=== PATIENT | male | born 1940 | race Caucasian/White ===

== ENCOUNTER 2020-08-26 16:04 | Emergency (ER) | payer OTHER ==
[~2020-08-26] VITALS: Ht 170.2 cm; Wt 63.5 kg
--- NOTE | 2020-08-26 16:22 | NUR ---
Dr Aguila at the bedside for MSE.
[2020-08-26] MEDS ORDERED: DRON10CA5 PO (16:24)
[2020-08-26] MEDS ORDERED: IV NORMAL SALINE 1000 ML BAG IV ONE (16:30)
--- NOTE | 2020-08-26 17:14 | NUR ---
Attempted x1 to place a HL on pt, unable to, Pt's daughter states "she does want him to be stick 1000 times, because he will feel pain." Dr Aguila made aware and order recieved for Midline.
--- NOTE | 2020-08-26 17:14 | NUR ---
[employer] [facility] notified for Midline placement, ETA 2000.
[2020-08-26 17:29] LABS: *BILIRUBIN,URIN NEGATIVE (NEGATIVE); *BLOOD, URINE NEGATIVE (NEGATIVE); *COLOR,URINE YELLOW (YELLOW); *KETONES,URINE NEGATIVE (NEGATIVE); LEUKOCYTE ESTERASE ,URINE 1+ (NEGATIVE); NITRITE, URINE POSITIVE (NEGATIVE); PH,URINE 6.5 (5.0-8.0); UGLUCOSE NEGATIVE (NEGATIVE)
[2020-08-26 17:33] LABS: *CLARITY,URINE SLIGHTLY CLOUDY (CLEAR)
[2020-08-26 17:34] LABS: PHOSPHOROUS 2.8 mg/dL (2.5-4.9)
--- NOTE | 2020-08-26 17:37 | NUR ---
Dr Aguila attempted to place a line on Rt external jagular, the site became hematos, pressure dressing applied.
[2020-08-26 17:42] LABS: CARBON DIOXIDE 21 mmol/L (21-32); CHLORIDE 94 mmol/L (98-107); CREATININE 0.3 mg/dL (0.6-1.3); GLUCOSE 130 mg/dL (74-106); POTASSIUM 3.5 mmol/L (3.5-5.1); UREA NITROGEN, BLOOD 14 mg/dL (7-18)
[2020-08-26 17:48] LABS: ALANINE AMINOTRANSFERASE 8 U/L (16-63); ALKALINE PHOSPHATASE 237 U/L (50-136); ASPARTATE AMINOTRANSFERASE 12 U/L (15-37); BILIRUBIN,DIRECT 0.3 mg/dL (0.0-0.2); BILIRUBIN,TOTAL 0.7 mg/dL (0.2-1.0)
[2020-08-26 17:54] LABS: BASOPHILS # (AUTO) 0.1 K/uL (0.0-8.0); BASOPHILS % (AUTO) 0.2 % (0.0-2.0); EOSINOPHILS # (AUTO) 0.1 K/uL (0.0-0.7); EOSINOPHILS % (AUTO) 0.3 % (0.0-7.0); HEMOGLOBIN 11.9 g/dL (12.5-16.3); LYMPHOCYTES # (AUTO) 2.4 K/uL (20.0-40.0); LYMPHOCYTES % (AUTO) 8.2 % (20.5-51.5); MEAN CORPUSCULAR HEMOGLOBIN 25.4 uug (23.8-33.4); MEAN CORPUSCULAR HGB CONC 32 g/dL (32.5-36.3); MEAN CORPUSCULAR VOLUME 78.9 fL (73.0-96.2); MONOCYTES # (AUTO) 1.3 K/uL (2.0-10.0); MONOCYTES % (AUTO) 4.3 % (0.0-11.0); NEUTROPHILS # (AUTO) 25.8 K/uL (1.8-8.9); PLATELET COUNT (AUTO) 269 K/uL (152-348); RED BLOOD CELL COUNT(AUTO) 4.69 MIL/uL (4.06-5.63); WHITE BLOOD COUNT (AUTO) 29.7 K/uL (3.6-10.2)
[2020-08-26] MEDS ORDERED: CEFEPIME HCL 2 G in IV DEXTROSE 5% 100 ML IV ONE (18:00)
[2020-08-26] MEDS ORDERED: VANCOMYCIN IV 1,000 MG in IV DEXTROSE 5% 250 ML IV ONE (18:00)
[2020-08-26] MEDS ORDERED: AZITHROMYCIN IV 500 MG in IV DEXTROSE 5% 250 ML IV ONE (18:00)
[2020-08-26 18:10] LABS: THYROID STIMULATING HORMONE 2.041 mIU/mL (0.358-3.740)
[2020-08-26 18:46] LABS: BACTERIA,URINE MANY /HPF (NONE SEEN); CALCIUM OXALATE CRYSTALS,UR RARE /HPF (NONE SEEN); RBC,URINE 0-3 /HPF (0-3); SQUAMOUS EPITHELIAL CELL,UR FEW /HPF (NONE SEEN); WBC,URINE 0-3 /HPF (0-3)
--- NOTE | 2020-08-26 19:05 | NUR ---
Dr Conley at the bedside.
[2020-08-26] MEDS ORDERED: CEFTRIAXONE 1 G VIAL IM ONE (19:45)
--- NOTE | 2020-08-26 20:00 | NUR ---
Patient/pt daughter do not wish to proceed with medical care recommended by Dr. Dotty RUTH ). Patient/pt daughter given information related to possible complications, up to and including , which could occur as a result of leaving the hospital at this time. Patient verbalizes understanding of risks involved due to leaving against medical advice. Patient has signed AMA form.pt daughter called private ambulance that took pt home.
== END 2020-08-26 20:00 | disposition left against medical advice (07) ==
LOC: ER 16:07
DX: A41.9 Sepsis, unspecified organism (principal); I44.7 Left bundle-branch block, unspecified; C67.9 Malignant neoplasm of bladder, unspecified; C79.9 Secondary malignant neoplasm of unspecified site; J90 Pleural effusion, not elsewhere classified; I82.413 Acute embolism and thrombosis of femoral vein, bilateral; E11.9 Type 2 diabetes mellitus without complications; Z53.29 Procedure and treatment not carried out because of patient's decision for other reasons; E87.1 Hypo-osmolality and hyponatremia; D64.9 Anemia, unspecified; D72.829 Elevated white blood cell count, unspecified; N39.0 Urinary tract infection, site not specified; R91.8 Other nonspecific abnormal finding of lung field; R65.20 Severe sepsis without septic shock; I49.3 Ventricular premature depolarization; R60.0 Localized edema; R06.82 Tachypnea, not elsewhere classified; Z91.041 Radiographic dye allergy status
CPT/HCPCS: 36415; 70030-TC; 70450; 71045; 71250; 83605; 83690; 83735; 84100; 84443; 85025; 85730; 87040; 87086; 93005; A4663; J7030